=== PATIENT | male | born 1990 | race Caucasian/White ===

== ENCOUNTER 2018-03-16 16:40 | Inpatient (IN) | payer OTHER ==
--- NOTE | 2018-03-16 17:03 | GHP ---
ADMISSION DIAGNOSIS: Left scrotal cellulitis. HPI: By history, this gentleman has been feeling bad since Wednesday. He has had some scrotal swelling. Turns out somewhere around Wednesday he had sexual activity and had had an external device on his genitals for approximately 2 hours, and he has been having fevers and chills and not feeling well since that time, and today he was seen at [facility] because of nausea and vomiting, and he has had a fever of 101. They did do some blood work, and I did not have the results of that at the time of the dictation. By history, he has had no history of sexually transmitted disease. He uses condoms. His partners are male, and he has had no instrumentation. He denies dysuria, and the main problem is the pain in the left scrotum, and he said when he looks down there it does not look normal and he has been swollen for several days. MEDICATIONS: None. ALLERGIES: None. PRIOR SURGERIES: None. REVIEW OF SYSTEMS: He has had some diarrhea noted today. PHYSICAL EXAM: GENERAL: He is alert and oriented x3. HEAD, EARS, EYES, NOSE, THROAT: Normal. CHEST: Normal respiratory effort. ABDOMEN: No rebound or guarding. : Penis has mild swelling. Right hemiscrotum is normal. Right testicle normal. Left testicle normal. Left hemiscrotum has inflammation, erythema, redness and an ischemic area kind of mid scrotum, and he has palpable tender inguinal lymph nodes, and he says that the redness has gotten somewhat worse over the past 12 hours. LOWER EXTREMITIES: Normal. RECTAL: Deferred. IMPRESSION: He has severe cellulitis with normal testicles, and then on the cellulitis he has 6 mm fluid collection by ultrasound in the office, and I will repeat the ultrasound tomorrow at the hospital. He will be admitted for antibiotic coverage and Infectious Disease consult and after appropriate intravenous hydration and antibiotic coverage, may consider surgical drainage or excision of the lesion. Discussed with him the gravity of this problem, and he is in agreement for care as outlined. Once again, laboratory from [facility] is pending and when I have that will review that at that time. /[id number]/MODL MTDD
[2018-03-16] MEDS ORDERED: PROMETHAZINE HCL 25 MG/ML INJ IVP PRN (18:25)
[2018-03-16] MEDS ORDERED: ONDANSETRON DISINTEGRATING 4 MG TAB PO PRN (18:25)
[2018-03-16] MEDS: HYDROmorphONE/DILAUDID 1 MG/ML INJ IVP PRN (18:40)
[2018-03-16] MEDS: ONDANSETRON 4 MG/2 ML VIAL IVP PRN ×2 (18:40→23:18)
[2018-03-16] MEDS: NS 1,000 ML IV SCH (18:49)
[2018-03-16] MEDS: PIPERACILLIN/TAZO 3.375 GM/DEX 50 ML IV SCH ×2 (19:14→23:18)
[2018-03-16 19:33] LABS: INR 1.31 (0.83-1.16); PROTIME(PATIENT) 16.5 SEC (12.0-15.0)
[2018-03-16] MEDS: ACETAMINOPHEN 325 MG TAB PO PRN (20:06)
[2018-03-16 20:58] LABS: PLATELET COUNT 105 10^3/uL (150-400)
[2018-03-16] MEDS: oxyCODONE IR 5 MG TAB PO PRN (23:18)
[2018-03-16] MEDS: LORazepam 2 MG/ML INJ IVP PRN (23:18)
--- NOTE | 2018-03-16 23:24 | PDGENHP ---
History and Physical - Chief Complaint scrotal swelling and pain - History of Present Illness Patient is a 27 year old previously healthy man who comes in as a direct admit from Dr. Flowers's office for concerns of scrotal swelling, redness and pain. This has been present since Wednesday approximately. Patient is homosexual and did have protected sex prior to this starting and apparently also had some sort of device involved in this per Dr. Flowers. Over the next several days he noted increased pain and swelling and redness initially to the left testicle only, but over the course of the day today it has spread to the right as well. He has some painful lymphadenopathy on the left. He was seen by the [facility] for this earlier in the week and they have sent STD testing, he notes he only has protected sex but still wanted testing, declines having us repeat the testing here. He has no other complaints at this time. History Information - Allergies/Home Medication List Allergies/Adverse Reactions: No Known Allergies Allergy (Unverified 03/16/18 18:25) Home Medications: NK [No Known Home Meds] 03/16/18 [Last Taken Unknown] I have personally reviewed and updated: family history, medical history, social history, surgical history - Past Medical History no pertinent PMH - Surgical History Reports: no pertinent surgical hx - Family History Positive for: non-pertinent - Social History Smoking Status: Never smoked Alcohol Use: Occasionally Drug Use: None Additional social history: currently a [employer] Review of Systems Review of Systems: ROS: 10pt was reviewed & negative except for what was stated in HPI & below Physical Exam Physical Exam: Temp Pulse Resp BP Pulse Ox 37.8 C 86 16 105/56 L 92 03/16/18 21:49 03/16/18 21:49 03/16/18 21:49 03/16/18 21:49 03/16/18 21:49 Constitutional: no apparent distress, appears nourished Eyes: PERRL Ears, Nose, Mouth, Throat: moist mucous membranes, hearing normal Cardiovascular: regular rate and rhythym, no murmur, rub, or gallop, No edema Respiratory: no respiratory distress, no rales or rhonchi Gastrointestinal: normoactive bowel sounds, soft, non-tender abdomen Genitourinary: other (scrotal edema/erythema with blackened area in the mid scrotum on the left) Skin: warm, normal color Musculoskeletal: no muscle tenderness Neurologic: AAOx3 Psychiatric: interacting appropriately, not anxious, not encephalopathic Lymph, Heme, Immunologic: lymphadenopathy (left inguinal region) Lab Data & Imaging Review 03/16/18 18:05 03/16/18 18:05 WBC 9.43 10^3/uL (3.80-9.50) 03/16/18 18:05 RBC 4.09 10^6/uL (4.40-6.38) L 03/16/18 18:05 Hgb 12.5 g/dL (13.7-17.5) L 03/16/18 18:05 Hct 36.8 % (40.0-51.0) L 03/16/18 18:05 MCV 90.0 fL (81.5-99.8) 03/16/18 18:05 MCH 30.6 pg (27.9-34.1) 03/16/18 18:05 MCHC 34.0 g/dL (32.4-36.7) 03/16/18 18:05 RDW 13.2 % (11.5-15.2) 03/16/18 18:05 Plt Count 105 10^3/uL (150-400) L 03/16/18 18:05 MPV 11.6 fL (8.7-11.7) 03/16/18 18:05 Neut % (Auto) Not Reported 03/16/18 18:05 Lymph % (Auto) Not Reported 03/16/18 18:05 [place] % (Auto) Not Reported 03/16/18 18:05 Eos % (Auto) Not Reported 03/16/18 18:05 Baso % (Auto) Not Reported 03/16/18 18:05 Nucleat RBC Rel Count Not Reported 03/16/18 18:05 Absolute Neuts (auto) Not Reported 03/16/18 18:05 Absolute Lymphs (auto) Not Reported 03/16/18 18:05 Absolute Monos (auto) Not Reported 03/16/18 18:05 Absolute Eos (auto) Not Reported 03/16/18 18:05 Absolute Basos (auto) Not Reported 03/16/18 18:05 Absolute Nucleated RBC Not Reported 03/16/18 18:05 Immature Gran % Not Reported 03/16/18 18:05 Seg Neutrophils % 91.0 % 03/16/18 18:05 Band Neutrophils % 0.0 % 03/16/18 18:05 Lymphocytes % 2.0 % 03/16/18 18:05 Monocytes % 7.0 % 03/16/18 18:05 Eosinophils % 0.0 % 03/16/18 18:05 Basophils % 0.0 % 03/16/18 18:05 Metamyelocytes % 0.0 % 03/16/18 18:05 Myelocytes % 0.0 % 03/16/18 18:05 Promyelocytes % 0.0 % 03/16/18 18:05 Blast Cells % 0.0 % 03/16/18 18:05 Immature Gran # Not Reported 03/16/18 18:05 Absolute Seg Neuts 8.48 10^3/uL (1.70-6.50) H 03/16/18 18:05 Absolute Band Neuts 0.00 10^3/uL (0.00-0.70) 03/16/18 18:05 Absolute Lymphocytes 0.19 10^3/uL (1.00-3.00) L 03/16/18 18:05 Absolute Monocytes 0.65 10^3/uL (0.30-0.80) 03/16/18 18:05 Absolute Eosinophils 0.00 10^3/uL (0.03-0.40) L 03/16/18 18:05 Absolute Basophils 0.00 10^3/uL (0.02-0.10) L 03/16/18 18:05 Absolute Metamyelocyte 0.00 10^3/mL (0.00-0.00) 03/16/18 18:05 Absolute Myelocytes 0.00 10^3/mL (0.00-0.00) 03/16/18 18:05 Absolute Promyelocytes 0.00 10^3/uL (0.00-0.00) 03/16/18 18:05 Absolute Plasma Cells 0.00 10^3/uL (0.00-0.00) 03/16/18 18:05 Nucleated RBCs 0 /100 WBC (0-0) 03/16/18 18:05 RBC/WBC/PLT Morphology NORMAL (NORMAL) 03/16/18 18:05 Absolute Blast Cells 0.00 10^3/uL (0.00-0.00) 03/16/18 18:05 Plasma Cells % 0.0 % 03/16/18 18:05 Platelet Estimate DECREASED (ADEQ) L 03/16/18 18:05 PT 16.5 SEC (12.0-15.0) H 03/16/18 18:05 INR 1.31 (0.83-1.16) H 03/16/18 18:05 APTT 34.3 SEC (23.0-38.0) 03/16/18 18:05 Sodium 131 mEq/L (135-145) L 03/16/18 18:05 Potassium 3.7 mEq/L (3.5-5.2) 03/16/18 18:05 Chloride 101 mEq/L (97-110) 03/16/18 18:05 Carbon Dioxide 22 mEq/l (22-31) 03/16/18 18:05 Anion Gap 8 mEq/L (6-14) 03/16/18 18:05 BUN 20 mg/dL (7-23) 03/16/18 18:05 Creatinine 0.9 mg/dL (0.7-1.3) 03/16/18 18:05 Estimated GFR > 60 03/16/18 18:05 Glucose 108 mg/dL (70-100) H 03/16/18 18:05 Calcium 7.8 mg/dL (8.5-10.4) L 03/16/18 18:05 Assessment & Plan Assessment: 27 yo previously healthy man presenting with scrotal cellulitis # scrotal cellulitis: with associated area that appears to be ischemic and some fairly rapid progression of sxs concerning for nec fasc or other deeper infection. Discussed with Dr. Flowers who has evaluate the patient and plans for surgical evaluation in the am, abx to be provided tonight, started on zosyn. Will check esr/crp. ID consulted. US performed at urology office today showing no clear abscess, no epidymitis or torsion. Did begin following sexual activity that involved some external device, unclear if related, STD testing at [facility], ID consulted. # hyponatremia: in the setting of acute infection as above and likely related to same, will trend # thrombocytopenia: without prior baseline to compare, ? if related to acute infectious process, trending # anemia: mild, baseline unknown, normocytic, trending # fever: otherwise not meeting sirs criteria, related to above # IP status, will require > 48 hours stay for eval/mgmt of above Patient new to my care. Old records reviewed and summarized as above. Care plan reviewed with Dr. Flowers as above.
[2018-03-17] MEDS: HYDROmorphONE/DILAUDID 1 MG/ML INJ IVP PRN ×3 (03:07→12:23)
[2018-03-17] MEDS: PIPERACILLIN/TAZO 3.375 GM/DEX 50 ML IV SCH ×4 (05:17→23:24)
[2018-03-17 05:41] LABS: PLATELET COUNT 102 10^3/uL (150-400)
--- NOTE | 2018-03-17 08:47 | PDMN ---
Medical Necessity Medical necessity: [facility] M70 cellulitis: A-2 days: pt presents with scrotal swelling increasing, fever chills, N/V, -concern for nec fasciitis, or other deeper infection - urology consult complete, IV abx needed- poss surgical intervention, anticipate > 2 MN ongoing med nec care further monitoring, eval and tx.
--- NOTE | 2018-03-17 10:37 | GCON ---
CHIEF COMPLAINT: Scrotal swelling. HISTORY OF PRESENT ILLNESS: This is a healthy 27-year-old male who engaged in sexual activity with an external device on his genitals last Wednesday for approximately 2 hours. Since then, he has been having fevers, chills, and has not feeling well. He was seen at [facility] yesterday for nausea and vomiting and had a fever of 101. The patient reports that since Wednesday, the left side of his scrotum has become increasingly swollen, red, and tender. He denies history of sexually transmitted diseases. He denies dysuria. We were asked to see this patient by Dr. Flowers for possible surgical debridement. PAST MEDICAL HISTORY: None. PAST SURGICAL HISTORY: None. MEDICATIONS: None. ALLERGIES: None. REVIEW OF SYSTEMS: A 10-point review of systems was performed and is negative, aside from what is in the HPI. PHYSICAL EXAM: GENERAL: This is a well-appearing 27-year-old male, resting comfortably in hospital bed, in no acute distress. HEENT: Normocephalic, atraumatic. Pupils are equal and round. No scleral icterus. Mucous membranes are moist. No gross hearing deficits. CARDIAC: Regular rate and rhythm. No clicks, murmurs, or rubs. Chest: Clear to auscultation bilaterally. No increased work of breathing. ABDOMEN: Soft, nontender, nondistended. : Penis has mild swelling. Right hemiscrotum and testicle appear normal. Left testicle is normal. The left hemiscrotum has inflammation, erythema, and is very tender to palpation. There is an abrasion in the right mid scrotum that is beginning to appear ischemic. There is left inguinal lymphadenopathy. NEUROLOGIC: Grossly intact. PSYCHIATRIC: Appropriate mood and affect. IMPRESSION AND PLAN: This is a 27-year-old male who engaged in sexual activity with an external device on his genitals last Wednesday for approximately 2 hours. Since then, he reports increased swelling and tenderness in his scrotum. On arrival to the hospital, his temperature was 101. He was admitted to the hospital and placed on intravenous hydration and antibiotics. The patient was seen by Dr. Umanzor and myself. We discussed that we will continue to follow him while he is in the hospital. Hopefully he will respond to IV hydration and antibiotics; however, we did discuss the possibility for the need for surgical debridement. Infectious Disease has been consulted and will see the patient today. The patient understands and wishes to proceed with plan. /[id number]/MODL MTDD
--- NOTE | 2018-03-17 11:53 | PDCONSULT ---
Transportation Officer Note: Assessment and Plan #Severe scrotal cellulitis and possible L scrotal abscess. Precipitant likely related to clipper trauma. Most likely pathogens staphylococcus or streptococcus. Possible slight improvement overnight but high risk for need for drainage. Pain level not suggestive of deeper necrotizing infection but small areas of necrosis superficially --culture pustule and open ulcers on scrotum --okay to continue standard Zosyn for now, doubt STD or Pseudomonas --monitor closely to assess for need for drainage #Low platelets: likely related to infection #Unprotected Sex: STD screen, ordered records from [facility]. Screen GC/ Chlam in meantime Chief complaint: Scrotal swelling with question of infectious source MD requesting consult: Dr. Karl Smith History of present illness: 27 year-old male who is seen for management of scrotal cellulitis and abscess. Reports onset of scrotal pain and swelling was sudden on 03/13/18 and the swelling has [id number], but initially started on the top left side progressing distally and eventually extending to the right side. On Wednesday swelling, pain, redness dramatically increased and was evaluated by [facility] then urology, resulting in admission. Prior to onset symptoms, 03/12/18, he shaved his pubic hair with a pair of new trimmers and admits to nicking himself a couple of times with the edge of the clipper. He also used a penis ring 03/13/18 for 1-2 hours during unprotected sexual intercourse. In addition to scrotal symptoms, he reports associated flu-like sx, malaise, severe scrotal pain making it difficult to ambulate, loss in appetite, dehydration due to fluid intolerance, nausea, fever, chills, and headache for the past x4 days. Denies associated penile or rectal discharge or other rectal symptoms or rash. Has received Gardasil vaccination. He is going to [employer] for his Masters. Last full panel STD testing was in November 2017 and was negative PMHx: Exercise induced asthma. H/o perioral HSV. Syphilis: while in college tx with x3 intramuscular injections. On PrEP for 2 years but now off approximately 6 months SHx: Warts removed from anus x2 years ago. Family hx: Reviewed and non-contributory Social hx: drinks EtOH, [employer] student, no illicit drug, tobacco, or E- cigarette use. Went to college in [place] where he was on [employer] team. MSM. Allergies: 3 Allergy/AdvReac No Known Allergies Medications: 3 Generic Name Dose Route Start Last Admin Trade Name Freq PRN Reason Stop Dose Admin Acetaminophen 650 mg 03/16/18 18:25 03/16/18 20:06 Tylenol PO 09/12/18 18:24 650 mg Q4HRS PRN Administration Pain, Mild/Fever, Can Take PO Hydrocodone Bitart/Acetaminophen 1 - 2 tab 03/16/18 18:25 [place] 5/325 PO 03/26/18 18:24 Q4HRS PRN Pain, Moderate Able to Take PO Hydromorphone HCl 0.2 - 0.4 mg 03/16/18 18:25 03/17/18 08:11 Dilaudid IVP 03/26/18 18:24 0.4 mg Q4HRS PRN Administration Pain, Severe Unable to Take PO Sodium Chloride 1,000 mls @ 100 mls/hr 03/16/18 18:30 03/16/18 18:49 Ns IV 09/12/18 18:29 1,000 mls CONT MICH Administration Piperacillin/Tazobactam/Dextrose 50 mls @ 100 mls/hr 03/16/18 18:30 03/17/18 05:17 Zosyn 3.375 Gm (Premix) IV 04/15/18 18:29 50 mls Q6HRS MICH Administration Protocol Lorazepam 0.5 - 1 mg 03/16/18 18:25 03/16/18 23:18 Ativan Injection IVP 09/12/18 18:24 0.5 mg Q8HRS PRN Administration Anxiety, Unable to Take PO Ondansetron HCl 4 mg 03/16/18 18:25 03/16/18 23:18 Zofran IVP 09/12/18 18:24 4 mg Q4HRS PRN Administration Nausea/Vomiting, Can't Take PO Ondansetron HCl 4 mg 03/16/18 18:25 Zofran Odt PO 09/12/18 18:24 Q4HRS PRN Nausea/Vomiting, Use 1st Oxycodone HCl 5 - 10 mg 03/16/18 18:25 03/16/18 23:18 Oxycodone Ir PO 03/26/18 18:24 5 mg Q3HRS PRN Administration Pain, Severe Able to Take PO Promethazine HCl 6.25 - 12.5 mg 03/16/18 18:25 Phenergan IVP 09/12/18 18:24 Q6HRS PRN Nausea/Vomiting, Use 2nd ROS: 10 systems were reviewed and negative with the exception of the elements mentioned in the history of present illness. Vitals: 3 Temp Pulse Resp BP Pulse Ox 37.0 C /Tm 38.8 89 14 101/61 92 03/17/18 10:48 03/17/18 10:48 03/17/18 10:48 03/17/18 10:48 03/17/18 10:48 Physical exam: General: Well-nourished, well-developed. No apparent distress. HEENT: No scleral icterus, conjunctival injection, or conjunctival lesions. Oropharynx shows moist mucous membranes with no thrush. Geographic tongue. Good dentition. No thrush Neck: Supple without palpable lymphadenopathy. Chest: Clear to auscultation bilaterally without adventitious sounds. Respiratory effort is normal. Cardiovascular: Regular rate rhythm with faint systolic murmurs, no rubs or gallops. Abdomen: Soft, nontender, nondistended. No hepatomegaly or splenomegaly. No suprapubic tenderness. Genitourinary: Massive scrotal swelling left greater than right with erythema. x2 necrotic ulcers on the left. No crepitus. Marked inguinal lymphadenopathy left greater than right. Pustular lesion suprapubic region. Mild erythema on the posterior side of penis as it was circumcised, minimal edema of the penis. Erythema localized to scrotum that did not tract up to the suprapubic or inguinal region. Rectal exam: Normal. Musculoskeletal: No cyanosis, clubbing or edema. Fluent speech Skin: Normal color, no rash. Neurologic: AAOx3, moving all 4 extremities Laboratory results: 3 WBC 8.31 10^3/uL (3.80-9.50) 03/17/18 05:15 RBC 4.10 10^6/uL (4.40-6.38) L 03/17/18 05:15 Hgb 12.5 g/dL (13.7-17.5) L 03/17/18 05:15 Hct 36.6 % (40.0-51.0) L 03/17/18 05:15 MCV 89.3 fL (81.5-99.8) 03/17/18 05:15 MCH 30.5 pg (27.9-34.1) 03/17/18 05:15 MCHC 34.2 g/dL (32.4-36.7) 03/17/18 05:15 RDW 13.1 % (11.5-15.2) 03/17/18 05:15 Plt Count 102 10^3/uL (150-400) L 03/17/18 05:15 MPV 10.9 fL (8.7-11.7) 03/17/18 05:15 Neut % (Auto) 83.3 % (39.3-74.2) H 03/17/18 05:15 Lymph % (Auto) 4.8 % (15.0-45.0) L 03/17/18 05:15 [place] % (Auto) 10.6 % (4.5-13.0) 03/17/18 05:15 Eos % (Auto) 0.8 % (0.6-7.6) 03/17/18 05:15 Baso % (Auto) 0.1 % (0.3-1.7) L 03/17/18 05:15 Nucleat RBC Rel Count 0.0 % (0.0-0.2) 03/17/18 05:15 Absolute Neuts (auto) 6.92 10^3/uL (1.70-6.50) H 03/17/18 05:15 Absolute Lymphs (auto) 0.40 10^3/uL (1.00-3.00) L 03/17/18 05:15 Absolute Monos (auto) 0.88 10^3/uL (0.30-0.80) H 03/17/18 05:15 Absolute Eos (auto) 0.07 10^3/uL (0.03-0.40) 03/17/18 05:15 Absolute Basos (auto) 0.01 10^3/uL (0.02-0.10) L 03/17/18 05:15 Absolute Nucleated RBC 0.00 10^3/uL (0-0.01) 03/17/18 05:15 Immature Gran % 0.4 % (0.0-1.1) 03/17/18 05:15 Seg Neutrophils % 91.0 % 03/16/18 18:05 Band Neutrophils % 0.0 % 03/16/18 18:05 Lymphocytes % 2.0 % 03/16/18 18:05 Monocytes % 7.0 % 03/16/18 18:05 Eosinophils % 0.0 % 03/16/18 18:05 Basophils % 0.0 % 03/16/18 18:05 Metamyelocytes % 0.0 % 03/16/18 18:05 Myelocytes % 0.0 % 03/16/18 18:05 Promyelocytes % 0.0 % 03/16/18 18:05 Blast Cells % 0.0 % 03/16/18 18:05 Immature Gran # 0.03 10^3/uL (0.00-0.10) 03/17/18 05:15 Absolute Seg Neuts 8.48 10^3/uL (1.70-6.50) H 03/16/18 18:05 Absolute Band Neuts 0.00 10^3/uL (0.00-0.70) 03/16/18 18:05 Absolute Lymphocytes 0.19 10^3/uL (1.00-3.00) L 03/16/18 18:05 Absolute Monocytes 0.65 10^3/uL (0.30-0.80) 03/16/18 18:05 Absolute Eosinophils 0.00 10^3/uL (0.03-0.40) L 03/16/18 18:05 Absolute Basophils 0.00 10^3/uL (0.02-0.10) L 03/16/18 18:05 Absolute Metamyelocyte 0.00 10^3/mL (0.00-0.00) 03/16/18 18:05 Absolute Myelocytes 0.00 10^3/mL (0.00-0.00) 03/16/18 18:05 Absolute Promyelocytes 0.00 10^3/uL (0.00-0.00) 03/16/18 18:05 Absolute Plasma Cells 0.00 10^3/uL (0.00-0.00) 03/16/18 18:05 Nucleated RBCs 0 /100 WBC (0-0) 03/16/18 18:05 RBC/WBC/PLT Morphology TNP 03/17/18 05:15 Absolute Blast Cells 0.00 10^3/uL (0.00-0.00) 03/16/18 18:05 Plasma Cells % 0.0 % 03/16/18 18:05 Platelet Estimate TNP 03/17/18 05:15 ESR 25 MM/HR (0-15) H 03/17/18 05:15 PT 16.5 SEC (12.0-15.0) H 03/16/18 18:05 INR 1.31 (0.83-1.16) H 03/16/18 18:05 APTT 34.3 SEC (23.0-38.0) 03/16/18 18:05 Sodium 133 mEq/L (135-145) L 03/17/18 05:15 Potassium 3.6 mEq/L (3.5-5.2) 03/17/18 05:15 Chloride 102 mEq/L (97-110) 03/17/18 05:15 Carbon Dioxide 24 mEq/l (22-31) 03/17/18 05:15 Anion Gap 7 mEq/L (6-14) 03/17/18 05:15 BUN 16 mg/dL (7-23) 03/17/18 05:15 Creatinine 0.9 mg/dL (0.7-1.3) 03/17/18 05:15 Estimated GFR > 60 03/17/18 05:15 Glucose 106 mg/dL (70-100) H 03/17/18 05:15 Calcium 8.0 mg/dL (8.5-10.4) L 03/17/18 05:15 Total Bilirubin 1.1 mg/dL (0.1-1.4) 03/17/18 05:15 Conjugated Bilirubin 0.4 mg/dL (0.0-0.5) 03/17/18 05:15 Unconjugated Bilirubin 0.7 mg/dL (0.0-1.1) 03/17/18 05:15 AST 33 IU/L (17-59) 03/17/18 05:15 ALT 44 IU/L (21-72) 03/17/18 05:15 Alkaline Phosphatase 69 IU/L (38-126) 03/17/18 05:15 C-Reactive Protein 205.4 mg/L (<10.0) H 03/17/18 05:15 Total Protein 5.1 g/dL (6.3-8.2) L 03/17/18 05:15 Albumin 2.9 g/dL (3.5-5.0) L 03/17/18 05:15 Microbiology: 03/16/18 Blood cx (2) pending Imaging studies: US testicular impression: 1) Findings compatible with severe left and mild right epididymitis without progression to orchitis or testicular abscess. 2) Fluid in the left scrotal sac is mildly complex with multiple septations raising concern for pyocele. Scribe attestation: I, Hermila Rod, am scribing for, and in the presence of, Lila Herrmann MD I, Amie Meditz, MD, personally performed the services described in this documentation, as scribed by Hermila Rod in my presence, and it is both accurate and complete. Greater than 80 minutes spent on this patients care, greater than 50% of time spent counseling, educating, and coordinating care regarding the above mentioned plan.
--- NOTE | 2018-03-17 13:37 | HOSPPROG ---
Hospitalist Progress Note Assessment/Plan: 27 yo previously healthy man presenting with scrotal swelling concerning for cellulitis # scrotal cellulitis- I discussed the case with ID who recommends abx and cultures. I reviewed the scrotal ultrasound with findings consistent with a epididymitis. on exam, area of black skin concerning for ischemia. Apparently labs drawn at [facility] which we will need to follow up with. -continue zosyn -wound culture -ID and urology following. # hyponatremia: in the setting of acute infection as above and likely related to same, will trend # thrombocytopenia: without prior baseline to compare, ? if related to acute infectious process, trending # anemia: mild, baseline unknown, normocytic, trending # IP status, will require > 48 hours stay for eval/mgmt of above Patient new to my care. Old records reviewed and summarized as above. Subjective: some discomfort , but pain better with medications. Objective: Vital Signs Temp Pulse Resp BP Pulse Ox 37.0 C 89 14 101/61 92 03/17/18 10:48 03/17/18 10:48 03/17/18 10:48 03/17/18 10:48 03/17/18 10:48 Laboratory Results 03/17/18 05:15 03/17/18 05:15 03/16/18 03/17/18 03/18/18 05:59 05:59 05:59 Intake Total 250 50 Balance 250 50 PT 16.5 SEC (12.0-15.0) H 03/16/18 18:05 INR 1.31 (0.83-1.16) H 03/16/18 18:05 - Physical Exam Constitutional: no apparent distress, appears nourished, not in pain Eyes: PERRL, anicteric sclera, EOMI Ears, Nose, Mouth, Throat: moist mucous membranes, hearing normal, ears appear normal, no oral mucosal ulcers Cardiovascular: regular rate and rhythym, no murmur, rub, or gallop Respiratory: no respiratory distress, no rales or rhonchi, clear to auscultation Gastrointestinal: normoactive bowel sounds, soft, non-tender abdomen, no palpable masses Genitourinary: other (scrotum erythematous, swollen and with an 4cm area of ulceration and dusky discoloration. ) Skin: rash (erythema of scrotum. ) Musculoskeletal: full muscle strength, no muscle tenderness, normal joint ROM Neurologic: AAOx3, sensation intact bilaterally Psychiatric: interacting appropriately, not anxious, not encephalopathic, thought process linear Lymph, Heme, Immunologic: no cervical LAD, no supraclavicular LAD ICD10 Worksheet Patient Problems: Problems Problem Status Onset Scrotal wall abscess Acute
--- NOTE | 2018-03-17 14:49 | ASMTCMCOM ---
CM Note CM Note Notes: Patient admitted for fever, scrotal pain and swelling. Surgery, ID, and hospital medicine following. IV abx on board. He is normally independent, grad student at . I don't anticipate any d/c needs but should he need IV abx upon d/c, Case Management will help coordinate. Date Signed: 03/17/2018 02:49 PM Electronically Signed By:Olivia Deshpande RN
--- NOTE | 2018-03-17 15:13 | SOAPPROG ---
SOAP Progress Note Assessment/Plan: Assessment: Scrotal wall abscess Acute improved over night on antibx and bed rest, continue care, consider surgical debridement in future Plan: as noted 03/17/18 15:10 Subjective: better Objective: Vital Signs Temp Pulse Resp BP Pulse Ox 37.0 C 89 14 101/61 92 03/17/18 10:48 03/17/18 10:48 03/17/18 10:48 03/17/18 10:48 03/17/18 10:48 Laboratory Results 03/17/18 05:15 03/17/18 05:15 03/16/18 03/17/18 03/18/18 05:59 05:59 05:59 Intake Total 250 50 Balance 250 50 PT 16.5 SEC (12.0-15.0) H 03/16/18 18:05 INR 1.31 (0.83-1.16) H 03/16/18 18:05 Physical Exam - Physical Exam General Appearance: alert Neck: supple Respiratory: No respiratory distress Cardiac/Chest: regular rate, rhythm Abdomen: soft Male Genitalia: other (scrotal drainage from necrotic areas, no crepitus, testis seems normal, groin inflammation and rafaela inflammation less from 16 hours prior to this exam) Skin: warm/dry Extremities: No calf tenderness Neuro/Psych: oriented x 3 ICD10 Worksheet Patient Problems: Problems Problem Status Onset Scrotal wall abscess Acute - ICD10 Problem Qualifiers (1) Scrotal wall abscess
[2018-03-17] MEDS: NS 1,000 ML IV SCH (16:00)
[2018-03-17] MEDS: HYDROCODONE/APAP 5/325 TAB PO PRN ×2 (16:08→21:16)
[2018-03-17 16:59] LABS: HIV TYPE 1 AND 2 NEGATIVE (NEGATIVE)
--- NOTE | 2018-03-17 21:41 | SOAPPROG ---
SOAP Progress Note Assessment/Plan: Assessment: FU SCROTAL CELULITIS AND ABSCESS?/ WBC OK/ AFEBRILE NOW AREA NOW DRAINING SERO-PURULENT FLUID RISKS AND OPTIONS FULLY DISCUSSED Plan:I&D IN AM WHEN NPO 03/17/18 21:39 Objective: Vital Signs Temp Pulse Resp BP Pulse Ox 36.9 C 83 16 105/56 L 91 L 03/17/18 20:00 03/17/18 20:00 03/17/18 20:00 03/17/18 20:00 03/17/18 20:00 Microbiology 03/17/18 12:21 Gram Stain - Final Scrotum - Swab 03/17/18 12:22 Gram Stain - Final Other - Swab Laboratory Results 03/17/18 05:15 03/17/18 05:15 03/16/18 03/17/18 03/18/18 05:59 05:59 05:59 Intake Total 250 1550 Balance 250 1550 PT 16.5 SEC (12.0-15.0) H 03/16/18 18:05 INR 1.31 (0.83-1.16) H 03/16/18 18:05 ICD10 Worksheet Patient Problems: Problems Problem Status Onset Scrotal wall abscess Acute
[2018-03-17] MEDS: LORazepam 2 MG/ML INJ IVP PRN (23:16)
[2018-03-18] MEDS: DOCOSANOL 2 GM CREAM TP SCH ×8 (00:28→22:04)
[2018-03-18] MEDS: PIPERACILLIN/TAZO 3.375 GM/DEX 50 ML IV SCH (05:24)
--- NOTE | 2018-03-18 07:52 | SOAPPROG ---
SOAP Progress Note Assessment/Plan: Assessment: Scrotal wall abscess Acute HD #2 improved on antibx and bed rest, continue care, consider surgical debridement today with Dr. Umanzor and wound care consult. Drainage noted and agree with plans. Plan: as noted, Since plans for care will follow peripherally 03/18/18 08:56 Subjective: improved, drainage noted Objective: Vital Signs Temp Pulse Resp BP Pulse Ox 37.2 C 83 16 87/53 L 90 L 03/18/18 04:00 03/18/18 04:00 03/18/18 04:00 03/18/18 04:00 03/18/18 04:00 Microbiology 03/17/18 12:21 Gram Stain - Final Scrotum - Swab 03/17/18 12:22 Gram Stain - Final Other - Swab Laboratory Results 03/17/18 05:15 03/17/18 05:15 03/17/18 03/18/18 03/19/18 05:59 05:59 05:59 Intake Total 250 1550 Balance 250 1550 PT 16.5 SEC (12.0-15.0) H 03/16/18 18:05 INR 1.31 (0.83-1.16) H 03/16/18 18:05 Physical Exam - Physical Exam General Appearance: alert Male Genitalia: other (scrotal ischemic area draining and purulent fluid noted, testis and epididymis seem palpably normal) Extremities: No calf tenderness, No Tonie's sign Neuro/Psych: alert, oriented x 3 ICD10 Worksheet Patient Problems: Problems Problem Status Onset Scrotal wall abscess Acute - ICD10 Problem Qualifiers (1) Scrotal wall abscess
--- NOTE | 2018-03-18 08:18 | PCMIDPN ---
Assessment/Plan: # scrotal cellulitis with left sided scrotal abscess. Suspect Staphylococcus or Streptococcus. 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 # Unprotected sex: HIV neg, reviewed w patient ; ordered records from [facility] Microbiology 03/16/2017 blood cultures (2) NGTD 03/17/2017 suprapubic and scrotal culture: Gram stains + for GPCs Medications Zosyn 3.375 g IV Q 6, # 2 Subjective: Reports that increased drainage from the left side. Tolerating antibiotics well. Noted new ulcer right upper lip Objective: Vital Signs Temp Pulse Resp BP Pulse Ox 36.8 C 91 16 110/63 91 L 03/18/18 08:00 03/18/18 08:00 03/18/18 08:00 03/18/18 08:00 03/18/18 08:00 Microbiology 03/17/18 12:21 Gram Stain - Final Scrotum - Swab 03/17/18 12:22 Gram Stain - Final Other - Swab Laboratory Results 03/17/18 05:15 03/17/18 05:15 03/17/18 03/18/18 03/19/18 05:59 05:59 05:59 Intake Total 250 1550 Balance 250 1550 ESR 25 MM/HR (0-15) H 03/17/18 05:15 C-Reactive Protein 205.4 mg/L (<10.0) H 03/17/18 05:15 - Physical Exam General Appearance: alert, no apparent distress, thin EENT: other (Good dentition, geographic tongue; right upper lip ulceration), No thrush Respiratory: lungs clear, No accessory muscle use Neck: supple Cardiac/Chest: regular rate, rhythm, No systolic murmur Extremities: No pedal edema Male Genitalia: other (Scrotal swelling improved today, diffuse erythema but less intense, necrotic superficial area left scrotum with pinpoint area of purulent drainage, bilateral inguinal lymphadenopathy), No osorio Skin: warm/dry, No diaphoresis, No rash Neuro/Psych: alert, normal mood/affect, oriented x 3 - Time Spent With Patient Time Spent with Patient: greater than 35 minutes (Care coordinated with surgical team) Time Spent with Patient: Greater than 35 minutes spent on this patients care, greater than 50% of time spent counseling, educating, and coordinating care regarding the above mentioned plan. ICD10 Worksheet Patient Problems: Problems Problem Status Onset Scrotal wall abscess Acute
[2018-03-18] MEDS ORDERED: BUPIVACAINE 0.5% 30 ML SDV ONE (09:07)
[2018-03-18] MEDS ORDERED: BACITRACIN ZINC 0.5 OZ OINTTUBE TP ONE (09:08)
[2018-03-18] MEDS ORDERED: LR 1,000 ML IV ONE (09:26)
[2018-03-18] MEDS ORDERED: CEFAZOLIN 2 GM/DEXTROSE/100 ML BAG IV ONE (09:39)
[2018-03-18] MEDS ORDERED: MIDAZOLAM 2 MG/2 ML VIAL IVP ONE (09:47)
--- NOTE | 2018-03-18 09:47 | PDANEPAE ---
ANE History of Present Illness here for scrotal I and D ANE Past Medical History - Cardiovascular History Hx Hypertension: No Hx Arrhythmias: No Hx Chest Pain: No Hx Coronary Artery / Peripheral Vascular Disease: No Hx CHF / Valvular Disease: No Hx Palpitations: No - Pulmonary History Hx COPD: No Hx Asthma/Reactive Airway Disease: No Hx Recent Upper Respiratory Infection: No Hx Oxygen in Use at Home: No Hx Sleep Apnea: No Sleep Apnea Screening Result - Last Documented: Negative - Neurologic History Hx Cerebrovascular Accident: No Hx Seizures: No Hx Dementia: No ANE Review of Systems Review of systems is: negative Review of Systems: - Exercise capacity Exercise capacity: <4 METS ANE Patient History - Allergies Allergies/Adverse Reactions: No Known Allergies Allergy (Unverified 03/16/18 18:25) - Home Medications Home medications: home medication list seen and reviewed Home Medications: NK [No Known Home Meds] 03/16/18 [Last Taken Unknown] - NPO status NPO Status: no food or drink >8 hours NPO Since - Liquids (Date): 03/17/18 NPO Since - Solids (Date): 03/17/18 - Anes Hx Anes Hx: no prior problems - Smoking Hx Smoking Status: Never smoked - Alcohol Use Alcohol Use: Occasionally ANE Labs/Vital Signs - Labs Result Diagrams: 03/17/18 05:15 03/17/18 05:15 - Vital Signs Vital Signs: reviewed preoperatively; see RN documention for details Blood Pressure: 110/63 Heart Rate: 91 Respiratory Rate: 16 O2 Sat (%): 91 Height: 182.88 cm Weight: 77.474 kg ANE Physical Exam - Airway Neck exam: FROM Mallampati Score: Class 1 - Pulmonary Pulmonary: no respiratory distress - Cardiovascular Cardiovascular: regular rate and rhythym - ASA Status ASA Status: II ANE Anesthesia Plan Anesthesia Plan: GA w LMA
[2018-03-18] MEDS ORDERED: fentaNYL 100 MCG/2 ML INJ ONE ×3 (09:53→10:53)
[2018-03-18] MEDS ORDERED: PROPOFOL/EMULSION 500 MG/50 ML BOTTLE IV ONE (09:55)
[2018-03-18] MEDS ORDERED: DEXAMETHASONE 4 MG/ML VIAL ONE (10:04)
[2018-03-18] MEDS ORDERED: ONDANSETRON 4 MG/2 ML VIAL ONE (10:04)
[2018-03-18] MEDS ORDERED: THROMBIN (BOVINE) 20,000 UNIT SPRAY TP ONE (10:20)
[2018-03-18 10:45] LABS: GC AMPLIFICATION GENPROBE NEGATIVE (NEGATIVE)
--- NOTE | 2018-03-18 10:48 | POSTANESTH ---
Post Anesthetic Evaluation Cardiovascular Status: Normal, Stable Respiratory Status: Normal, Stable Level of Consciousness/Mental Status: Moderately Sleepy Pain Control: Adequate, Prn Tx Ordered Nausea/Vomiting Control: Adequate, Prn Tx Ordered Complications Possibly Related to Anesthesia: None Noted
[2018-03-18] MEDS ORDERED: LR 500 ML IV PRN (10:54)
[2018-03-18] MEDS ORDERED: ALBUTEROL 3 ML DEYVIAL IH PRN (10:54)
[2018-03-18] MEDS ORDERED: HYDROCODONE/APAP 5/325 TAB PO PRN (10:54)
[2018-03-18] MEDS ORDERED: PROMETHAZINE HCL 25 MG/ML INJ IVP PRN (10:54)
[2018-03-18] MEDS ORDERED: HYDROmorphONE/DILAUDID 2 MG/ML INJ IVP PRN (10:54)
[2018-03-18] MEDS ORDERED: NALOXONE HCL 0.4 MG/ML INJ IVP PRN (10:54)
[2018-03-18] MEDS ORDERED: oxyCODONE IR 5 MG TAB PO PRN (10:54)
[2018-03-18] MEDS ORDERED: ONDANSETRON 4 MG/2 ML VIAL IVP PRN (10:54)
[2018-03-18] MEDS ORDERED: ACETAMINOPHEN 500 MG TAB PO PRN (10:54)
[2018-03-18] MEDS ORDERED: DEXAMETHASONE 4 MG/ML VIAL IVP PRN (10:54)
--- NOTE | 2018-03-18 10:57 | POSTOPPROG ---
Post Op Note Date of Operation: 03/18/18 Surgeon: Byron Umanzor Rental Agent: Roxanne Anesthesiologist: Omkar Anesthesia: GET(General Endotracheal) Pre-op Diagnosis: Scrotal abscess Post-op Diagnosis: same Indication: same Procedure: I&D of scrotum, nahum drain placement Findings: Multiple pockets of pus, superficial necrosis, normal testicles Inf/Abcess present in the surg proc area at time of surgery?: Yes Depth: Deep Incisional (Fascial) EBL: Minimal Drains: [place] Specimen(s): Culture swabs x2 Tissue for pathology
[2018-03-18] MEDS ORDERED: HYDROCODONE/APAP 5/325 TAB ONE (11:05)
[2018-03-18] MEDS: valACYclovir 500 MG TAB PO SCH (12:24)
[2018-03-18] MEDS: VANCOMYCIN 1.5 GM in D5W 250 ML IV SCH ×2 (12:24→23:47)
[2018-03-18] MEDS: oxyCODONE IR 5 MG TAB PO PRN ×3 (13:02→22:18)
[2018-03-18] MEDS ORDERED: ceFAZolin 2 GM/DEXTROSE 100 ML IV SCH (14:00)
[2018-03-18] MEDS: NS 1,000 ML IV SCH (15:54)
--- NOTE | 2018-03-18 17:40 | HOSPPROG ---
Hospitalist Progress Note Assessment/Plan: 27 yo previously healthy man presenting with scrotal swelling concerning for cellulitis # scrotal cellulitis- I discussed the case with ID who recommends abx and cultures. culture positive for MRSA and so patient switched to vancomycin. I reviewed the scrotal ultrasound with findings consistent with a epididymitis. on exam, area of black skin concerning for ischemia. Apparently labs drawn at [facility] which we will need to follow up with. HIV negative. Taken to OR today for debridement. -continue vancomycin -wound culture -ID and urology following. # hyponatremia: in the setting of acute infection as above and likely related to same, will trend # thrombocytopenia: without prior baseline to compare, ? if related to acute infectious process, trending # anemia: mild, baseline unknown, normocytic, trending # IP status, will require > 48 hours stay for eval/mgmt of above Patient new to my care. Old records reviewed and summarized as above. Subjective: still a little groggy from surgery. pain adequately controlled. Objective: Vital Signs Temp Pulse Resp BP Pulse Ox 36.8 C 80 16 109/69 94 03/18/18 15:05 03/18/18 15:05 03/18/18 15:05 03/18/18 15:05 03/18/18 15:05 Microbiology 03/18/18 10:12 Gram Stain - Final Groin - Eswab 03/18/18 10:12 Gram Stain - Final Groin - Eswab 03/17/18 12:21 Gram Stain - Final Scrotum - Swab 03/17/18 12:22 Gram Stain - Final Other - Swab Laboratory Results 03/17/18 05:15 03/17/18 05:15 03/17/18 03/18/18 03/19/18 05:59 05:59 05:59 Intake Total 250 1550 1120 Output Total 15 Balance 250 1550 1105 PT 16.5 SEC (12.0-15.0) H 03/16/18 18:05 INR 1.31 (0.83-1.16) H 03/16/18 18:05 - Physical Exam Constitutional: no apparent distress, appears nourished, not in pain Eyes: PERRL, anicteric sclera, EOMI Ears, Nose, Mouth, Throat: moist mucous membranes, hearing normal, ears appear normal, no oral mucosal ulcers Cardiovascular: regular rate and rhythym, no murmur, rub, or gallop Respiratory: no respiratory distress, no rales or rhonchi, clear to auscultation Gastrointestinal: normoactive bowel sounds, soft, non-tender abdomen, no palpable masses Genitourinary: no bladder fullness, no bladder tenderness, no renal bruits, other (groin bandaged) Skin: no rashes or abrasions, no fluctuance, no induration Musculoskeletal: full muscle strength, no muscle tenderness, normal joint ROM Neurologic: AAOx3, sensation intact bilaterally Psychiatric: interacting appropriately, not anxious, not encephalopathic, thought process linear Lymph, Heme, Immunologic: no cervical LAD, no supraclavicular LAD ICD10 Worksheet Patient Problems: Problems Problem Status Onset Scrotal wall abscess Acute
[2018-03-18] MEDS: LORazepam 2 MG/ML INJ IVP PRN (22:19)
[2018-03-19] MEDS: oxyCODONE IR 5 MG TAB PO PRN ×2 (02:33→08:59)
--- NOTE | 2018-03-19 02:45 | GOP ---
DATE OF OPERATION: 03/18/2018 SURGEON: Byron Umanzor MD INFORMATION SYSTEMS SECURITY DEVELOPER: Ml Oliveira NP ANESTHESIOLOGIST: Dr. Espitia. PREOPERATIVE DIAGNOSIS: Scrotal abscess. POSTOPERATIVE DIAGNOSIS: Necrotizing fasciitis of the scrotum. PROCEDURE PERFORMED: Scrotal exploration with incision and drainage of abscess and radical debrideme nt. FINDINGS: The patient was found to have superficial skin and subcutaneous necrosis with necrotizing infection. This partially involved the dartos tunic around the testicle, but did not involve the mayank ticle itself or the testicular space. The specimen was sent for pathology and for cultures. DESCRIPTION OF PROCEDURE: The patient was taken to the operating room where he received a satisfacto ry general endotracheal anesthesia by Dr. Espitia, placed in a supine position, prepped and draped in the usual sterile fashion. A vertical incision was made through the necrotic area in the scrotum. I mmediately entering the area, there was purulent drainage and extensive subcutaneous necrosis. A wid er excision was done of the necrotic skin and subcutaneous tissue back to good bleeding noninfected t issue circumferentially. A portion of the tunica was excised along with the necrotic material enteri ng the testicular space. There was only clear fluid in that space with no purulence, and the testicl e and epididymis were quite viable. The wound was copiously irrigated and further debridements where necessary was completed and hemostasis was obtained with electrocautery. The tunica was approximate d with 2-0 PDS [id number] suture and a Salkum drain was placed in the testicle space and secure d at the exit site with a PDS suture. The wound was then packed with gauze after hemostasis was obta ined and a couple of skin sutures were placed over the gauze to keep the skin from retracting excessi vely. The wound was infiltrated with 0.5% Marcaine. He tolerated the procedure well, taken to the r ecovery room in good condition. Cultures were sent. There were no complications. /[id number]/MODL
[2018-03-19] MEDS: DOCOSANOL 2 GM CREAM TP SCH ×5 (06:07→20:09)
[2018-03-19] MEDS: DOCUSATE SODIUM 100 MG CAP PO PRN ×2 (06:07→19:58)
[2018-03-19] MEDS: valACYclovir 500 MG TAB PO SCH (08:59)
[2018-03-19] MEDS: ACETAMINOPHEN 325 MG TAB PO PRN ×3 (12:11→23:59)
[2018-03-19 12:17] LABS: PLATELET COUNT 147 10^3/uL (150-400)
[2018-03-19] MEDS: VANCOMYCIN 1.5 GM in D5W 250 ML IV SCH ×2 (12:37→23:31)
--- NOTE | 2018-03-19 13:07 | SOAPPROG ---
SOAP Progress Note Assessment/Plan: Assessment: FU SCROTAL CELULITIS AND ABSCESS?/ WBC OK/ AFEBRILE NOW AREA NOW DRAINING SERO-PURULENT FLUID RISKS AND OPTIONS FULLY DISCUSSED Plan:I&D IN AM WHEN NPO 03/17/18 21:39 03/19/18 13:06 27 male status post debridement for necrotizing fasciitis of the scrotum/ cultures growing MRSA Much more comfortable, afebrile Today Wound strainer cleaner, edema and cellulitis resolving, minimal drainage Plan dressing change and possible further debridement tomorrow Objective: Vital Signs Temp Pulse Resp BP Pulse Ox 36.9 C 92 16 111/67 89 L 03/19/18 11:16 03/19/18 11:16 03/19/18 11:16 03/19/18 11:16 03/19/18 11:16 Microbiology 03/17/18 12:22 Gram Stain - Final Other - Swab 03/17/18 12:21 Gram Stain - Final Scrotum - Swab 03/18/18 10:12 Gram Stain - Final Groin - Eswab 03/18/18 10:12 Gram Stain - Final Groin - Eswab Laboratory Results 03/19/18 11:20 03/19/18 11:20 03/18/18 03/19/18 03/20/18 05:59 05:59 05:59 Intake Total 1550 1720 Output Total 15 Balance 1550 1705 PT 16.5 SEC (12.0-15.0) H 03/16/18 18:05 INR 1.31 (0.83-1.16) H 03/16/18 18:05 ICD10 Worksheet Patient Problems: Problems Problem Status Onset Scrotal wall abscess Acute
--- NOTE | 2018-03-19 13:19 | PCMIDPN ---
Assessment/Plan: Assessment: Scrotal abscess with MRSA and group a strep. Currently being covered with IV vancomycin 1.5 g q.12 hours. Clinically appears to be doing well. He states that the pain in the scrotal area is greatly decreased. Surgeons came in earlier today and informed him that he would have his initial packing change under general anesthesia tomorrow. Plan: 1. Continue IV vancomycin at present dose. 2. Probable vancomycin trough level checked tomorrow. 3. Await MRSA sensitivity panel to determine choice of antibiotic for discharge. 03/19/18 13:17 Subjective: Patient is resting comfortably in his hospital bed. Denies fevers or chills. States that his scrotal area is feeling much better than yesterday. Objective: Vancomycin # 1 Vital Signs Temp Pulse Resp BP Pulse Ox 36.9 C 92 16 111/67 89 L 03/19/18 11:16 03/19/18 11:16 03/19/18 11:16 03/19/18 11:16 03/19/18 11:16 Microbiology 03/17/18 12:22 Gram Stain - Final Other - Swab 03/17/18 12:21 Gram Stain - Final Scrotum - Swab 03/18/18 10:12 Gram Stain - Final Groin - Eswab 03/18/18 10:12 Gram Stain - Final Groin - Eswab Laboratory Results 03/19/18 11:20 03/19/18 11:20 03/18/18 03/19/18 03/20/18 05:59 05:59 05:59 Intake Total 1550 1720 Output Total 15 Balance 1550 1705 ESR 25 MM/HR (0-15) H 03/17/18 05:15 C-Reactive Protein 205.4 mg/L (<10.0) H 03/17/18 05:15 - Physical Exam General Appearance: WD/WN, alert, no apparent distress, non-toxic Cardiac/Chest: regular rate, rhythm, No tachycardia Skin: normal color, warm/dry, No rash Neuro/Psych: alert, normal mood/affect, oriented x 3 ICD10 Worksheet Patient Problems: Problems Problem Status Onset Scrotal wall abscess Acute
--- NOTE | 2018-03-19 14:25 | HOSPPROG ---
Hospitalist Progress Note Assessment/Plan: 27 yo previously healthy man presenting with scrotal swelling concerning for cellulitis # scrotal cellulitis- STD testing negative. ID and surgery following. Culture grew out both GAS and MRSA. culture data pending. -continue vancomycin -wound culture -ID and surgery following -plan to take back to OR for I&D in am. # hyponatremia: resolved with fluids. # thrombocytopenia: without prior baseline to compare, ? if related to acute infectious process, trending # anemia: mild, baseline unknown, normocytic, trending # IP status, will require > 48 hours stay for eval/mgmt of above Patient new to my care. Old records reviewed and summarized as above. Subjective: pain well controlled. Tolerating pO without issue. able to urinate. Objective: Vital Signs Temp Pulse Resp BP Pulse Ox 36.9 C 92 16 111/67 89 L 03/19/18 11:16 03/19/18 11:16 03/19/18 11:16 03/19/18 11:16 03/19/18 11:16 Microbiology 03/17/18 12:22 Gram Stain - Final Other - Swab 03/17/18 12:21 Gram Stain - Final Scrotum - Swab 03/18/18 10:12 Gram Stain - Final Groin - Eswab 03/18/18 10:12 Gram Stain - Final Groin - Eswab Laboratory Results 03/19/18 11:20 03/19/18 11:20 03/18/18 03/19/18 03/20/18 05:59 05:59 05:59 Intake Total 1550 1720 Output Total 15 Balance 1550 1705 PT 16.5 SEC (12.0-15.0) H 03/16/18 18:05 INR 1.31 (0.83-1.16) H 03/16/18 18:05 - Physical Exam Constitutional: no apparent distress, appears nourished, not in pain Eyes: PERRL, anicteric sclera, EOMI Ears, Nose, Mouth, Throat: moist mucous membranes, hearing normal, ears appear normal, no oral mucosal ulcers Cardiovascular: regular rate and rhythym, no murmur, rub, or gallop Respiratory: no respiratory distress, no rales or rhonchi, clear to auscultation Gastrointestinal: normoactive bowel sounds, soft, non-tender abdomen, no palpable masses Genitourinary: no bladder fullness, no bladder tenderness, no renal bruits, other (scrotum bandaged) Skin: no rashes or abrasions, no fluctuance, no induration Musculoskeletal: full muscle strength, no muscle tenderness, normal joint ROM Neurologic: AAOx3, sensation intact bilaterally Psychiatric: interacting appropriately, not anxious, not encephalopathic, thought process linear Lymph, Heme, Immunologic: no cervical LAD, no supraclavicular LAD ICD10 Worksheet Patient Problems: Problems Problem Status Onset Scrotal wall abscess Acute
[2018-03-20] MEDS ORDERED: MELATONIN 3 MG TAB PO PRN (00:07)
[2018-03-20] MEDS ORDERED: LORazepam 0.5 MG TAB PO ONE (00:07)
[2018-03-20] MEDS: DOCOSANOL 2 GM CREAM TP SCH ×5 (05:24→21:31)
[2018-03-20 06:01] LABS: PLATELET COUNT 156 10^3/uL (150-400)
[2018-03-20] MEDS: DOCUSATE SODIUM 100 MG CAP PO PRN ×2 (08:10→21:39)
[2018-03-20] MEDS: valACYclovir 500 MG TAB PO SCH (08:10)
--- NOTE | 2018-03-20 09:15 | SOAPPROG ---
SOAP Progress Note Assessment/Plan: Assessment: FU SCROTAL CELULITIS AND ABSCESS?/ WBC OK/ AFEBRILE NOW AREA NOW DRAINING SERO-PURULENT FLUID RISKS AND OPTIONS FULLY DISCUSSED Plan:I&D IN AM WHEN NPO 03/17/18 21:39 03/19/18 13:06 27 male status post debridement for necrotizing fasciitis of the scrotum/ cultures growing MRSA Much more comfortable, afebrile Today Wound pipe cleaner, edema and cellulitis resolving, minimal drainage Plan dressing change and possible further debridement tomorrow 03/20/18 09:14 AFEBRILE/VITAL SIGNS STABLE/SCROTUM LESS EDEMA AND LESS ERYTHEMA BUT GEOLOGY INSTRUCTOR ON THE LEFT/LEFT GROIN ADENOPATHY PLAN DRESSING CHANGE TODAY Objective: Vital Signs Temp Pulse Resp BP Pulse Ox 36.8 C 81 14 119/71 91 L 03/20/18 08:00 03/20/18 08:00 03/20/18 08:00 03/20/18 08:00 03/20/18 08:00 Microbiology 03/18/18 10:12 Gram Stain - Final Groin - Eswab 03/17/18 12:22 Gram Stain - Final Other - Swab 03/17/18 12:21 Gram Stain - Final Scrotum - Swab 03/18/18 10:12 Gram Stain - Final Groin - Eswab Laboratory Results 03/20/18 05:24 03/20/18 05:24 03/19/18 03/20/18 03/21/18 05:59 05:59 05:59 Intake Total 1720 1500 Output Total 15 Balance 1705 1500 PT 16.5 SEC (12.0-15.0) H 03/16/18 18:05 INR 1.31 (0.83-1.16) H 03/16/18 18:05 ICD10 Worksheet Patient Problems: Problems Problem Status Onset Scrotal wall abscess Acute
[2018-03-20] MEDS: HYDROmorphONE/DILAUDID 1 MG/ML INJ IVP PRN (10:44)
[2018-03-20] MEDS ORDERED: HYDROmorphONE/DILAUDID 2 MG/ML INJ IVP ONE (11:15)
[2018-03-20] MEDS: VANCOMYCIN 1.5 GM in D5W 250 ML IV SCH ×2 (11:43→23:33)
[2018-03-20] MEDS: ACETAMINOPHEN 325 MG TAB PO PRN ×2 (14:55→21:39)
--- NOTE | 2018-03-20 15:31 | HOSPPROG ---
Hospitalist Progress Note Assessment/Plan: 27 yo previously healthy man presenting with scrotal swelling and small area of necrosis. Taken to OR for debridement of scrotum. Wound grew out strep pyogenes and MRSA. # scrotal cellulitis- STD testing negative. ID and surgery following. Culture grew out both GAS and MRSA. Re examined by surgery who changed dressing today. -continue vancomycin -wound culture -ID and surgery following # hyponatremia: resolved with fluids. # thrombocytopenia: without prior baseline to compare, ? if related to acute infectious process, trending # anemia: mild, baseline unknown, normocytic, trending # IP status, will require > 48 hours stay for eval/mgmt of above Patient new to my care. Old records reviewed and summarized as above. Subjective: pain well controlled. Upset about groin wound. no other complaints. Objective: Vital Signs Temp Pulse Resp BP Pulse Ox 36.7 C 79 16 118/70 91 L 03/20/18 11:14 03/20/18 11:14 03/20/18 11:14 03/20/18 11:14 03/20/18 11:14 Microbiology 03/18/18 10:12 Gram Stain - Final Groin - Eswab 03/18/18 10:12 Gram Stain - Final Groin - Eswab 03/17/18 12:21 Gram Stain - Final Scrotum - Swab Wound Culture - Final MRSA Streptococcus Pyogenes Grp A 03/17/18 12:22 Gram Stain - Final Other - Swab Wound Culture - Final MRSA Streptococcus Pyogenes Grp A Laboratory Results 03/20/18 05:24 03/20/18 05:24 03/19/18 03/20/18 03/21/18 05:59 05:59 05:59 Intake Total 1720 1500 Output Total 15 Balance 1705 1500 PT 16.5 SEC (12.0-15.0) H 03/16/18 18:05 INR 1.31 (0.83-1.16) H 03/16/18 18:05 - Physical Exam Constitutional: no apparent distress, appears nourished, not in pain Eyes: PERRL, anicteric sclera, EOMI Ears, Nose, Mouth, Throat: moist mucous membranes, hearing normal, ears appear normal, no oral mucosal ulcers Cardiovascular: regular rate and rhythym, no murmur, rub, or gallop Respiratory: no respiratory distress, no rales or rhonchi, clear to auscultation Gastrointestinal: normoactive bowel sounds, soft, non-tender abdomen, no palpable masses Genitourinary: no bladder fullness, no bladder tenderness, no renal bruits Skin: no rashes or abrasions, no fluctuance, no induration Musculoskeletal: full muscle strength, no muscle tenderness, normal joint ROM Neurologic: AAOx3, sensation intact bilaterally Psychiatric: interacting appropriately, not anxious, not encephalopathic, thought process linear Lymph, Heme, Immunologic: no cervical LAD, no supraclavicular LAD ICD10 Worksheet Patient Problems: Problems Problem Status Onset Scrotal wall abscess Acute
--- NOTE | 2018-03-20 15:38 | PCMIDPN ---
Assessment/Plan: Assessment: Scrotal abscess with MRSA and group a strep. Deep surgical cultures only growing group a strep. Currently being covered with IV vancomycin 1.5 g q.12 hours. Clinically appears to be doing well. He states that the pain in the scrotal area is greatly decreased. Initial packing changed done this morning in his hospital room. He was able to tolerate. Possibility for him to be discharged on a combination of Keflex and doxy provided the surgical bed looks good. Plan: 1. Continue IV vancomycin at present dose. 2. Probable discharge home tomorrow on oral Keflex and doxy. Subjective: Patient is resting in his hospital bed. He has appropriate postoperative tenderness in the scrotal area. States that the dressing change this morning went well. No fevers or chills. Overall feeling better. Objective: Vancomycin # 2 Vital Signs Temp Pulse Resp BP Pulse Ox 36.7 C 79 16 118/70 91 L 03/20/18 11:14 03/20/18 11:14 03/20/18 11:14 03/20/18 11:14 03/20/18 11:14 Microbiology 03/18/18 10:12 Gram Stain - Final Groin - Eswab 03/18/18 10:12 Gram Stain - Final Groin - Eswab 03/17/18 12:21 Gram Stain - Final Scrotum - Swab Wound Culture - Final MRSA Streptococcus Pyogenes Grp A 03/17/18 12:22 Gram Stain - Final Other - Swab Wound Culture - Final MRSA Streptococcus Pyogenes Grp A Laboratory Results 03/20/18 05:24 03/20/18 05:24 03/19/18 03/20/18 03/21/18 05:59 05:59 05:59 Intake Total 1720 1500 Output Total 15 Balance 1705 1500 ESR 25 MM/HR (0-15) H 03/17/18 05:15 C-Reactive Protein 205.4 mg/L (<10.0) H 03/17/18 05:15 - Physical Exam General Appearance: WD/WN, alert, no apparent distress, non-toxic Respiratory: lungs clear, normal breath sounds, No respiratory distress Cardiac/Chest: regular rate, rhythm, No tachycardia Skin: normal color, warm/dry, No rash Neuro/Psych: alert, normal mood/affect, oriented x 3 ICD10 Worksheet Patient Problems: Problems Problem Status Onset Scrotal wall abscess Acute
--- NOTE | 2018-03-20 16:04 | ASMTCMCOM ---
CM Note CM Note Notes: Patient continues on IV vancomycin, plan is to change to oral Keflex and Doxycycline. Plan continues to be independent discharge when medically stable. CM to follow. D/C plan: independent. Date Signed: 03/20/2018 04:04 PM Electronically Signed By:Praveena Ybarra
[2018-03-21 05:31] LABS: PLATELET COUNT 176 10^3/uL (150-400)
[2018-03-21] MEDS: ACETAMINOPHEN 325 MG TAB PO PRN ×2 (05:46→09:47)
[2018-03-21] MEDS: DOCOSANOL 2 GM CREAM TP SCH ×2 (05:47→10:37)
[2018-03-21 07:53] VITALS: BP 104/56
--- NOTE | 2018-03-21 09:13 | SOAPPROG ---
SOAP Progress Note Assessment/Plan: Assessment: 27 y/o M s/p scrotal debridement for necrotizing fasciitis, cultures growing MRSA. On iv vanc in hospital. S: Alert Afebrile VSS RRR No increased WOB : scrotum wound appears clean with healthy granulation tissue throughout, surrounding cellulitis and erythema improving Plan: Likely d/c home today. Pt feels comfortable performing packing and dressing changes himself. Will d/c on oral Keflex and doxy per ID. Follow up in our office on Wednesday. 03/21/18 09:10 Objective: Vital Signs Temp Pulse Resp BP Pulse Ox 36.7 C 68 16 104/56 L 93 03/21/18 07:51 03/21/18 07:51 03/21/18 07:51 03/21/18 07:51 03/21/18 07:51 Microbiology 03/18/18 10:12 Gram Stain - Final Groin - Eswab 03/18/18 10:12 Gram Stain - Final Groin - Eswab 03/17/18 12:21 Gram Stain - Final Scrotum - Swab Wound Culture - Final MRSA Streptococcus Pyogenes Grp A 03/17/18 12:22 Gram Stain - Final Other - Swab Wound Culture - Final MRSA Streptococcus Pyogenes Grp A Laboratory Results 03/21/18 05:10 03/21/18 05:10 03/20/18 03/21/18 03/22/18 05:59 05:59 05:59 Intake Total 1500 1550 Balance 1500 1550 PT 16.5 SEC (12.0-15.0) H 03/16/18 18:05 INR 1.31 (0.83-1.16) H 03/16/18 18:05 ICD10 Worksheet Patient Problems: Problems Problem Status Onset Scrotal wall abscess Acute
[2018-03-21] MEDS: valACYclovir 500 MG TAB PO SCH (09:47)
--- NOTE | 2018-03-21 12:23 | HOSPPROG ---
Hospitalist Progress Note Assessment/Plan: 27 yo previously healthy man presenting with scrotal swelling and small area of necrosis. Taken to OR for debridement of scrotum. Wound grew out strep pyogenes and MRSA. # scrotal cellulitis- STD testing negative. ID and surgery following. Culture grew out both GAS and MRSA. Re examined by surgery who changed dressing today. Home today on 7 days of keflex and doxy -follow up with surgery and ID # hyponatremia: resolved with fluids. # thrombocytopenia: without prior baseline to compare, ? if related to acute infectious process, trending # anemia: mild, baseline unknown, normocytic, trending Dispo- home today with follow up Subjective: feels better today, eager to go home. Objective: Vital Signs Temp Pulse Resp BP Pulse Ox 36.7 C 68 16 104/56 L 93 03/21/18 07:51 03/21/18 07:51 03/21/18 07:51 03/21/18 07:51 03/21/18 07:51 Microbiology 03/18/18 10:12 Gram Stain - Final Groin - Eswab 03/18/18 10:12 Gram Stain - Final Groin - Eswab 03/17/18 12:21 Gram Stain - Final Scrotum - Swab Wound Culture - Final MRSA Streptococcus Pyogenes Grp A 03/17/18 12:22 Gram Stain - Final Other - Swab Wound Culture - Final MRSA Streptococcus Pyogenes Grp A Laboratory Results 03/21/18 05:10 03/21/18 05:10 03/20/18 03/21/18 03/22/18 05:59 05:59 05:59 Intake Total 1500 1550 Balance 1500 1550 PT 16.5 SEC (12.0-15.0) H 03/16/18 18:05 INR 1.31 (0.83-1.16) H 03/16/18 18:05 - Physical Exam Constitutional: no apparent distress, appears nourished, not in pain Eyes: PERRL, anicteric sclera, EOMI Ears, Nose, Mouth, Throat: moist mucous membranes, hearing normal, ears appear normal, no oral mucosal ulcers Cardiovascular: regular rate and rhythym, no murmur, rub, or gallop Respiratory: no respiratory distress, no rales or rhonchi, clear to auscultation Gastrointestinal: normoactive bowel sounds, soft, non-tender abdomen, no palpable masses Genitourinary: no bladder fullness, no bladder tenderness, no renal bruits Skin: no rashes or abrasions, no fluctuance, no induration Musculoskeletal: full muscle strength, no muscle tenderness, normal joint ROM Neurologic: AAOx3, sensation intact bilaterally Psychiatric: interacting appropriately, not anxious, not encephalopathic, thought process linear Lymph, Heme, Immunologic: no cervical LAD, no supraclavicular LAD ICD10 Worksheet Patient Problems: Problems Problem Status Onset Scrotal wall abscess Acute
--- NOTE | 2018-03-23 10:36 | GDS ---
DISCHARGE DIAGNOSIS: Scrotal wall abscess. SPECIAL TESTS: Testicular ultrasound. For full details, please see report. CONSULTATIONS: Urology by Dr. José Antonio Flowers, General Surgery by Dr. Byron Umanzor , and Medicine by Dr. Karl Smith, and Infectious disease by Dr. Lila Herrmann PROCEDURES: Scrotal exploration with incision and drainage of abscess and radical debridement. INTRAOPERATIVE FINDINGS: The patient was found to have superficial skin and subcutaneous necrosis with necrotizing infection. This partially involved the dartos tunic around the testicle, but did not involve the testicle, itself, or the testicular space. The specimen was sent for pathology and for cultures. HOSPITAL COURSE: This is a healthy 27-year-old male who had engaged in sexual activity with an external device over his genitals and he subsequently developed a scrotal infection requiring surgical debridement. He was taken to the operating room by Dr. Umanzor for I&D and drain placement. The patient tolerated the procedure well and there were no complications. His cultures revealed MRSA and group A strep. The patient was initially treated with IV Zosyn; however, he was subsequently switched to IV vancomycin. After surgery, the patient underwent daily packing and dressing changes. His vital signs remained stable and he was afebrile. His pain was initially treated with IV pain medications; however, he was subsequently transitioned to oral pain medications. He was ultimately discharged on 03/21/2018, home in good condition. He was given instructions on how to change the packing and dressing himself at home daily. He was advised to follow up in our office 2 days later for a wound check. He was discharged home with a prescription for oxycodone, as well as a 7-day course of Keflex and doxycycline. He was advised to call with fever, chills, or worsening symptoms. The patient understood and was discharged home in good condition. /[id number]/MODL MTDD
== END 2018-03-21 13:07 | disposition home or self-care (01) | DRG 558 ==
LOC: F3E 17:06 → OBSVTOIN 17:06
PROVIDERS: ADMIT Specialist; ATTEND Surgery
PROC: 0VB50ZX Excision of Scrotum, Open Approach, Diagnostic (ICD-10-PCS; principal; 2018-03-18 11:45)
DX: M72.6 Necrotizing fasciitis (principal); N49.2 Inflammatory disorders of scrotum; B95.62 Methicillin resistant Staphylococcus aureus infection as the cause of diseases classified elsewhere; R59.0 Localized enlarged lymph nodes; E87.1 Hypo-osmolality and hyponatremia; D69.6 Thrombocytopenia, unspecified; D64.9 Anemia, unspecified; R50.9 Fever, unspecified; B00.1 Herpesviral vesicular dermatitis
CPT/HCPCS: J0690; J1100; J1170; J2060; J2250; J2405; J2543; J2704; J3010; J3370